=== PATIENT | male | born 1970 | race Two or more races ===

== ENCOUNTER 2021-01-29 06:59 | Day surgery (SDC) | payer OTHER | END 2021-01-29 11:05 | disposition home or self-care (01) | LOC: AMB-ENDOS 06:59 | PROVIDERS: ATTEND Colon & Rectal Surgery | DX: K57.32 Diverticulitis of large intestine without perforation or abscess without bleeding (principal); Z20.822 Contact with and (suspected) exposure to COVID-19; K64.1 Second degree hemorrhoids ==

== ENCOUNTER 2021-03-16 11:15 | Inpatient (IN) | payer OTHER ==
[~2021-03-16] VITALS: Ht 167.6 cm; Wt 79.4 kg
[2021-04-06] MEDS ORDERED: PERCOCET 5-3251 EACH PO (18:33)
== END 2021-04-06 19:50 | disposition home or self-care (01) | DRG 330 ==
LOC: SURH 03-23 05:53 → O/R 03-23 05:53 → SURH 03-23 11:15
PROVIDERS: ADMIT Colon & Rectal Surgery; ATTEND Colon & Rectal Surgery
PROC: 0DTP4ZZ Resection of Rectum, Percutaneous Endoscopic Approach (ICD-10-PCS; 2021-03-23)
PROC: 0DTN4ZZ Resection of Sigmoid Colon, Percutaneous Endoscopic Approach (ICD-10-PCS; principal; 2021-03-23 14:00)
PROC: 02HV33Z Insertion of Infusion Device into Superior Vena Cava, Percutaneous Approach (ICD-10-PCS; 2021-03-29)
PROC: BW2510Z Computerized Tomography (CT Scan) of Chest, Abdomen and Pelvis using Low Osmolar Contrast, Unenhanced and Enhanced (ICD-10-PCS; 2021-03-29)
PROC: BW21ZZZ Computerized Tomography (CT Scan) of Abdomen and Pelvis (ICD-10-PCS; 2021-04-01)
PROC: BW2110Z Computerized Tomography (CT Scan) of Abdomen and Pelvis using Low Osmolar Contrast, Unenhanced and Enhanced (ICD-10-PCS; 2021-04-05)
DX: K57.32 Diverticulitis of large intestine without perforation or abscess without bleeding (principal); K56.7 Ileus, unspecified; T81.43XA Infection following a procedure, organ and space surgical site, initial encounter; D64.9 Anemia, unspecified; E78.5 Hyperlipidemia, unspecified

== ENCOUNTER 2024-09-30 10:44 | Emergency (ER) | payer OTHER ==
[~2024-09-30] VITALS: Ht 165.1 cm; Wt 81.6 kg
[~2024-09-30 10:44] MED LIST: PERCOCET 5-3251 EACH PO
[2024-09-30 13:11] LABS: HEMATOCRIT 41.3 % (39.0-48.0); HEMOGLOBIN 13.9 g/dL (13-16.00); MEAN CELL VOLUME 85.2 fL (80.0-100.00); MEAN CORPUSCULAR HEMOGLOBIN 28.6 pg (27.00-32.0); MEAN CORPUSCULAR HGB CONC 33.6 g/dl (32.0-36.0); PLATELET COUNT 249 K/uL (150-450); RED BLOOD COUNT 4.84 M/uL (4.00-6.00); RED CELL DISTRIBUTION WIDTH 14.2 % (11.5-14.5)
== END 2024-09-30 13:53 | disposition home or self-care (01) ==
LOC: ER 10:47
PROVIDERS: General Practice
DX: R53.81 Other malaise (principal); J06.9 Acute upper respiratory infection, unspecified; Z20.822 Contact with and (suspected) exposure to COVID-19